=== PATIENT | male | born 1995 | race Caucasian/White ===

== ENCOUNTER → 2023-04-03 16:25 | Outpatient (BNVA) | payer SELFPAY | PROVIDERS: Visit Provider Emergency Medicine | DX: S61.111A Laceration without foreign body of right thumb with damage to nail, initial encounter (principal); X58.XXXA Exposure to other specified factors, initial encounter | CPT/HCPCS: 73140 ==

== ENCOUNTER 2024-12-06 21:07 | Emergency (ER) | payer OTHER, SELFPAY ==
--- OUTSIDE RECORDS SUMMARY | 2024-12-06 21:14 | XMS_ITS | Encounter Summary ---
Author Organization [facility] Address [address] [place] [address] Care Team Providers Care Corporate Compliance Officer Name Role Phone Cole Larose MD Primary Care Provider [phone] Encounter Details Date Type Department Care Team (Latest Contact Info) Description 03/29/[address] 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
--- OUTSIDE RECORDS SUMMARY | 2024-12-06 21:14 | XMS_ITS | Encounter Summary ---
Author Organization [facility] Address [address] [place] [address] Care Team Providers Care Pyrotechnic Assembler Name Role Phone Cole Larose MD Primary Care Provider [phone] Encounter Details Date Type Department Care Team (Latest Contact Info) Description 11/17/1998 Outpatient Historical [facility] Family Medicine Olga [address] [address] Keyla Ocasio, MARIA DOLORES [address] [place] [address] Other specified congenital anomaly of skin (Primary Dx) Social History Tobacco Use Types Packs/Day Years Used Date Smoking Tobacco: Never Assessed Sex and Gender Information Value Date Recorded Sex Assigned at Not on file 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
--- OUTSIDE RECORDS SUMMARY | 2024-12-06 21:14 | XMS_ITS | Clinical Summary ---
Author Organization [facility] Address [address] [facility] Attn: Epic Prelude ADT [place] [address] Care Team Providers Care Hr Internship Name Role Phone Cole Larose MD Primary Care Provider Allergies Active Allergy Reactions Criticality Noted Date Comments Morphine Hives,Rash High 04/13/2014 Medications ledipasvir-sofos buvir 90-400 mg Tablet Take 1 Tab by mouth daily. 30 Tablet 2 06/09/2014 Active Active Problems Problem Noted Date Diagnosed Date ADHD (attention deficit hyperactivity disorder) 04/20/2014 ADD (attention deficit disorder) 04/20/2014 Tobacco use disorder 04/13/2014 Hepatitis C-genotype 1a 04/13/2014 Overview (09/30/2020): Viral load undetectable 12/16 suggesting SVR but patient non compliant Immunizations Immunization Administration Dates Next Due (M-M-R II/PRIORIX)(12 MO UP) MEASLES, MUMPS AND RUBELLA VIRUS VACCINE, 0.5 ML IM/SUBCUT 02/18/1998,07/19/1995 Dt Dtp Dtap Vaccine 05/15/2006, 8,1995,1995,09/28/1994 HIB, Unspecified Formulation 07/19/1995,09/28/18 95 Hepatitis B Vaccine 07/19/1995,09/28/1994,1993 IPV/OPV 02/18/1998, 6,07/19/1995,1994 Social History Tobacco Use Types Packs/Day Years Used Date Smoking Tobacco: Former Cigarettes Smokeless Tobacco: Current Alcohol Use Standard Drinks/Week Comments No 0 (1 standard drink = 0.6 oz pur e alcohol) Sex and Gender Information Value Date Recorded Sex Assigned at Not on file Legal Sex Male 9:35 AM SINGING TELEGRAM PERFORMER Gender Identity Not on file Sexual Orientation Not on file Last Filed Vital Signs Vital Sign Reading Time Taken Comments Blood Pressure 143/75 08/03/2014 11:00 AM SINGING TELEGRAM PERFORMER Pulse 90 08/03/2014 11:00 AM SINGING TELEGRAM PERFORMER Temperature - - Respiratory Rate - - Oxygen Saturation - - Inhaled Oxygen Concentration - - Weight 80.3 kg (177 lb) 08/03/2014 11:00 AM SINGING TELEGRAM PERFORMER Height 170.2 cm (5' 7 ) 08/03/2014 11:00 AM SINGING TELEGRAM PERFORMER Body Mass Index 27.72 08/03/2014 11:00 AM SINGING TELEGRAM PERFORMER Plan of Treatment Health Maintenance Due Date Last Done Comments DTAP/TDAP/TD VACCINES (6 - Tdap) 05/15/2016 05/15/2006, 02/18/1998, 1995, Additional history exists INFLUENZA VACCINE (#1) 2025 HEPATITIS B VACCINES Completed 07/19/1995, 09/28/1994, 02/25/1994 HPV VACCINES Aged Out No longer eligi ble based on patient's age to complete this topic Care Teams Hr Internship Relationship Specialty Start Date End Date Cole Larose MD [address] [place] [address] PCP - General Family Practice 04/13/14
--- OUTSIDE RECORDS SUMMARY | 2024-12-06 21:14 | XMS_ITS | Clinical Summary ---
Author Organization [facility] Address [address] [place] [address] Care Team Providers Care Admissions Advisor Name Role Phone Cole Larose MD Primary Care Provider Allergies Active Allergy Reactions Criticality Noted Date Comments Morphine Hives,Rash High 04/13/2014 Medications lithium carbonate 300 mg tablet Take 300 mg by mouth 2 times daily. Active ledipasvir-sofos buvir (HARVONI) 90-400 mg Tablet Take 1 Tab by mouth daily. 30 Tab 2 06/09/2014 Active Active Problems Problem Noted Date Diagnosed Date ADD (attention deficit disorder) 04/20/2014 ADHD (attention deficit hyperactivity disorder) 04/20/2014 Hepatitis C-genotype 1a 04/13/2014 Overview (12/15/2014): Viral load undetectable 12/16 suggesting SVR but patient non compliant Tobacco use disorder 04/13/2014 Immunizations Immunization Administration Dates Next Due (M-M-R [...] on file Legal Sex Male 6:31 AM TAX CONSULTANT Gender Identity Not on file Sexual Orientation Not on file Occupation Industry Job Start Date Job End Date Not on file Not on file Not on file Not on file Last Filed Vital Signs Vital Sign Reading Time Taken Comments Blood Pressure 143/75 08/03/2014 11:00 AM TAX CONSULTANT Pulse 90 08/03/2014 11:00 AM TAX CONSULTANT Temperature 36.2 C (97.1 F) 04/20/2014 8:56 AM TAX CONSULTANT Respiratory Rate 20 04/20/2014 8:56 AM TAX CONSULTANT Oxygen Saturation 98% 08/03/2014 11:00 AM TAX CONSULTANT Inhaled Oxygen Concentration - - Weight 80.3 kg (177 lb) 08/03/2014 11:00 AM TAX CONSULTANT Height 170.2 cm (5' 7 ) 08/03/2014 11:00 AM TAX CONSULTANT Body Mass Index 27.72 08/03/2014 11:00 AM TAX CONSULTANT Plan of Treatment Health Maintenance Due Date Last Done Comments DTAP/TDAP/TD VACCINES (6 - Tdap) 05/15/2016 05/15/2006, 02/18/1998, 1995, Additional history exists INFLUENZA VACCINE (#1) 2025 HEPATITIS B VACCINES Completed 07/19/1995, 09/28/1994, 02/25/1994 HPV VACCINES Aged Out No longer eligi ble based on patient's age to complete this topic Insurance MEDICARE PART A AND B [place]ICAID [place] Care Teams Admissions Advisor Relationship Specialty Start Date End Date Cole Larose MD PCP - General Family Practice 04/13/14
[2024-12-06 21:36] VITALS: BP 125/82; PULSE 65; RESP 17; TEMP 36.4; O2SAT 98; BMI 27.7
--- NOTE | 2024-12-06 22:29 | ED_ITS ---
HPI - Dental/Oral General: Chief complaint: Dental/Oral Stated complaint: R Side of face hurting Time Seen by Provider: 12/06/24 22:09 History of Present Illness: Chief complaint is chronic dental pain that is gotten worse. Patient complains of right upper dental pain. No fever. No headache but has pain around that tooth. No chest pain or trouble breathing or vomiting or abdominal pain. He denies having diabetes. He states he is allergic morphine but he can take hydrocodone. He did try taking ibuprofen for the pain without relief Related Data Previous Rx's ?Medication ?Instructions ?Recorded sulfamethoxazole 800 1 tab PO BID 7 days #14 tabs 04/03/23 mg-trimethoprim 160 mg tablet clindamycin HCl 300 mg capsule 300 mg PO Q6H 7 days #2 8 caps 12/06/24 (Cleocin HCl) Allergies Allergy/AdvReac Type Severity Reaction Status Date / Time morphine Allergy Severe ADR-Halluci Verified 04/03/23 16:10 nating Penicillins Allergy Severe ALGY-Difficulty Verified 04/03/23 16:10 Swallowing Physical Exam Narrative: EXAM NARRATIVE: Patient is alert mild distress. He has poor dentition with dental caries upper right and draining pus over the gums at the root of the tooth. No facial swelling but has some mild swelling of the gums. No trismus. Normal sounding voice. No sublingual edema or swelling of the tongue or oropharynx. He is tolerating his secretions. Neck is supple. Pupils are equal and reactive. Heart is regular rhythm and rate. He is alert oriented and appropriate affect. No rash in exposed areas. Clear speech. Course Vital Signs: Vital signs: Vital Signs Temperature 97.6 F 12/06/24 21:36 Pulse Rate 65 12/06/24 21:36 Respiratory Rate 17 12/06/24 21:36 Blood Pressure 125/82 12/06/24 21:36 Pulse Oximetry 98 12/06/24 21:36 Oxygen Delivery Me thod Room Air 12/06/24 21:36 MDM - Dental/Oral Medical Decision Making Patient with likely periodontal abscess with spontaneous drainage and multiple dental caries. Plan to treat with clindamycin I advised risk and benefit. He denies history of C. difficile. Advised risk of C. difficile. Advise prompt follow-up with dentist and limits of ED evaluation. Will treat his pain with hydrocodone 10 mg p.o. here as he brought a driver education instructor with him. Advised alternative pain treatment options and potential treatment failure and need for dental follow-up. Advised signs symptoms of worsening watch and return for. Will get him a dose of clindamycin here as well and prescribe clindamycin. Patient agrees with plan after informed discussion No radiology studies performed this visit Discharge Plan Discharge Patient Disposition: Home Clinical Impression: Dental caries Condition: Stable Prescriptions: New clindamycin HCl [Cleocin HCl] 300 mg capsule 300 mg PO Q6H 7 Days Qty: 28 0RF No Action sulfamethoxazole-trimethoprim 800-160 mg tablet 1 tab PO BID 7 Days Qty: 14 0RF Discharge Orders: Discharge ED (Routine); Ordered 12/06/24 Ordered By: Raj Dao Patient Instructions: Opioid Safety, Pain Management, Patient Portal & Kristi Instructions Activity Restrictions/Additional Instructions: Follow-up with a dentist as soon as possible this week. Come back if increased facial swelling, worsening pain, fever, any worse or concerns. Come back if concerning watery diarrhea. No driving as you received a pain medication which can cause sedation Print Language: Macanese Coding Level of Care Code ED Cushion Filler for Jeffry Jordan
[2024-12-06] MEDS: HYDROcodone-acetaminophen 10-325 mg Tablet 1 TAB PO (22:39)
== END 2024-12-06 22:48 | disposition home or self-care (01) ==
PROVIDERS: Emergency Provider Emergency Medicine
DX: K02.9 Dental caries, unspecified (principal)
CPT/HCPCS: 99283; J9999